=== PATIENT | male | born 1975 | race Two or more races ===

== ENCOUNTER → 2016-04-30 | Day surgery (SDC) | payer OTHER ==
[~2016-04-30] VITALS: Ht 167.6 cm; Wt 86.2 kg
[2016-04-30] VITALS (14 sets, daily range): BP systolic 139–149; BP diastolic 78–90
[~2016-04-30] MED LIST: Bupivacaine w/Epi 0.25% 30ml Vial INJ ONE; Dexamethasone 4mg/ml vial ONE; EPINEPHrine 1mg/1ml Amp ONE; Hydromorphone 0.5mg/0.5ml inj IVP PRN; Ketorolac 30mg Inj IV PRN; Ketorolac 30mg Inj ONE; Lidocaine 1% 10mg/ml/Epi 0.005mg/ml 30ml vial INJ ONE; Morphine Sulfate 2mg/ml Inj IVP PRN; NKM; NS Irrig 2000ml IRRIG ONE; NS Irrig 4000ml IRRIG ONE; Norco 5mg/325mg tab ORAL PRN; Ropivacaine 5mg/ml Vial 20ml INJ ONE; ceFAZolin 1gm/50ml Premix 50 ML IV ONE; celeBREX 200mg Cap **SURGERY PATIENTS ONLY ORAL ONE; fentaNYL 100 mcg/2 mL IV PRN; oxyCONTIN 20mg tab ORAL ONE
--- NOTE | 2016-04-30 07:09 | Pre-Procedure Note/Attestation ---
Pre-Procedure Note/Attestation Complete Prior to Procedure Planned Procedure: right Procedure Narrative: shoulder arthroscopy, sad Indications for Procedure Pre-Operative Diagnosis: right shoulder impingement Attestation I attest that I discussed the nature of the procedure; its benefits; risks and complications; and alternatives (and the risks and benefits of such alternatives ), prior to the procedure, with the patient (or the patient's legal payable representative). I attest that, if there was a reasonable possibility of needing a blood transfusion, the patient (or the patient's legal payable representative) was given the [facility] standardized written summary, pursuant to the [place] Blood Safety Act ([place] Health and Safety Code # 1645, as amended). I attest that I re-evaluated the patient just prior to the surgery and that there has been no change in the patient's H&P, except as documented below: BRISEIDA MARINA Apr 30, 2016 07:09
--- NOTE | 2016-04-30 07:10 | Operative Note - PDOC ---
Operative Note Operative Note Pre-op Diagnosis: right shoulder impingement Procedure: right shoulder arthroscopy Post-op Diagnosis: same as pre-op plus Operative Findings: consistent w/pre-op dx studies Anesthesia: regional Specimen: none Complications: none Condition: stable Estimated Blood Loss: none Implant(s) used?: BRISEIDA Layton Apr 30, 2016 07:10
--- NOTE | 2016-04-30 10:51 | Anethesia Preoperative Eval ---
Anesthesia Pre-op PMH/ROS General Date of Evaluation: Apr 30, 2016 Time of Evaluation: 09:00 ASA Score: ASA 2 Mallampati Score Class I : Soft palate, uvula, fauces, pillars visible Class II: Soft palate, uvula, fauces visible Class III: Soft palate, base of uvula visible Class IV: Only hard plate visible Mallampati Classification: Class III Surgeon: Yao Diagnosis: Shoulder impingement syndrome Surgical Procedure: Release Shoulder impingement Syndrome Anesthesia History: none Family History: no anesthesia problems Allergies: Coded Allergies: No Known Allergies (Unverified , 04/29/16) Past Medical History Cardiovascular: Denies: CAD, HTN, [place], arrhythmia, other, valve dz Pulmonary: Denies: COPD, GABI, asthma, other Gastrointestinal/Genitourinary: Denies: CRI, ESRD, GERD, other Neurologic/Psychiatric: Denies: CVA, TIA, dementia, depression/anxiety, other Endocrine: Denies: DM, hypothyroidism, other, steroids HEENT: Denies: [place] (L), [place] (R), cataract (L), cataract (R), glaucoma, other Hematology/Immune: Denies: DVT, anemia, bleeding disorder, other Musculoskeletal/Integumentary: Reports: DJD Anesthesia Pre-op Phys. Exam Physician Exam Last Vital Signs Date Time Temp Pulse Resp B/P Pulse Ox O2 Delivery O2 Flow Rate FiO2 04/30/16 08:19 97.8 71 18 141/90 100 Room Air Constitutional: NAD Neurologic: CN 2-12 intact Cardiovascular: RRR Respiratory: CTA Airway Exam Mallampati Score: Class III STEVO SALCEDO M.D. Apr 30, 2016 10:51
--- NOTE | 2016-04-30 12:09 | Immediate Post-Op Evaluation ---
Immediate Post-Op Evalulation Immediate Post-Op Evalulation Procedure: Reolease Shoulder impingement Syndrome Date of Evaluation: Apr 30, 2016 Time of Evaluation: 11:05 IV Fluids: 600 Blood Products: 0 Estimated Blood Loss: 10 Urinary Output: na Blood Pressure Systolic: 120 Blood Pressure Diastolic: 70 Pulse Rate: 76 Respiratory Rate: 20 O2 Sat by Pulse Oximetry: 99 Temperature (Fahrenheit): 98 Pain Score (1-10): 2 Nausea: No Vomiting: No Complications na Patient Status: awake Hydration Status: adequate Drug: Ancef 2G Given Within 1 Hr of Incision: Yes Time Given: 10:00 STEVO SALCEDO M.D. Apr 30, 2016 12:09
--- NOTE | 2016-04-30 12:10 | 48 Hour Post Anesthesia Eval ---
Post Anesthesia Evaluation Procedure: Reolease Shoulder impingement Syndrome Date of Evaluation: Apr 30, 2016 Time of Evaluation: 12:09 Blood Pressure Systolic: 120 0: 80 Pulse Rate: 80 Respiratory Rate: 20 Temperature (Fahrenheit): 98 O2 Sat by Pulse Oximetry: 98 Airway: patent Nausea: No Vomiting: No Pain Intensity: 2 Hydration Status: adequate Cardiopulmonary Status: stable Mental Status/LOC: patient returned to baseline Follow-up Care/Observations: na Post-Anesthesia Complications: na Follow-up care needed: N/A STEVO SALCEDO M.D. Apr 30, 2016 12:10
--- NOTE | 2016-04-30 23:17 | Operative Note - Dictated ---
DATE OF OPERATION: 04/30/2016 PREOPERATIVE DIAGNOSES: 1. Right shoulder partial rotator cuff tear/tendinosis. 2. Right shoulder impingement syndrome. 3. Acromioclavicular joint arthropathy. POSTOPERATIVE DIAGNOSES: 1. Right shoulder biceps tenosynovitis. 2. Subacromial bursitis. 3. Impingement syndrome. 4. Acromioclavicular joint arthropathy. PROCEDURES: 1. Right shoulder arthroscopy, extensive intraarticular debridement. 2. Subacromial decompression bursectomy. 3. AC joint coplaning. SURGEON: Lobo Samayoa M.D. ANESTHESIA: Interscalene with general. INDICATION FOR PROCEDURE: The patient is a pleasant gentleman, who has got progressive right shoulder pain. He had an MRI, which showed evidence of some tendinosis versus partial tear of the rotator cuff with impingement syndrome. He had evidence of AC joint arthropathy. After failed conservative treatment and difficulty in doing activities, elected to undergo right shoulder diagnostic arthroscopy, subacromial decompression bursectomy and AC joint coplaning. At the time of surgery based on what the rotator cuff look like, we will perform repair versus debridement. Risks, limitations, expectations and complication of the procedure were discussed in detail. All questions addressed. DESCRIPTION OF PROCEDURE: After informed consent was obtained, the patient was taken to the operative room and placed under monitored anesthesia control. The patient was then carefully placed in beach-chair position. Right shoulder was prepped and draped in usual sterile manner. Time-out was performed. Port sites were injected with 0.25% Marcaine with epinephrine. Inferolateral stab incision was then made. Trocar introduced into the glenohumeral joint. Of note, there is no chondral damage. The anterior labrum appeared to be intact along with the subcapsular. The superior labrum was intact. There was hyperemia along the bicipital tendon as well as along the transverse ligament that was consistent with biceps tendonitis. The camera was then repositioned in the subacromial space. There is hypertrophic bursal tissue, which was debrided and visualized the acromion. Once the acromion was identified, acromioplasty was completed from lateral to medial and then from posterior to anterior. Once that was done, the distal aspect of a clavicle was visualized and with AC joint coplaning was performed. Once that was done, the bursectomy was completed in the posterior aspect of the shoulder. At that point, the instruments removed. Portal sites was closed with 3-0 Monocryl sutures. Compression dressing was applied. The patient taken to recovery room with stable vital signs. ESTIMATED BLOOD LOSS: None. COMPLICATIONS: None. SPECIMENS: None. IMPLANTS: None. Lobo Samayoa M.D. DR: BIBI JOB#: [id number] CC: MARK
== END | disposition home or self-care (01) ==
LOC: SUR 07:43
DX: M75.41 Impingement syndrome of right shoulder (principal); M12.811 Other specific arthropathies, not elsewhere classified, right shoulder; M65.811 Other synovitis and tenosynovitis, right shoulder; M71.9 Bursopathy, unspecified
CPT/HCPCS: 29823; 29826; J0171; J0690; J1100; J1885; J2405; J2795; 94003; 94150